=== PATIENT | female | born 1950 | race Caucasian/White ===

== ENCOUNTER 2018-03-20 15:05 | Emergency (ER) | payer OTHER | END 2018-03-20 16:12 | disposition home or self-care (01) | LOC: ER 16:12 | DX: S43.401A Unspecified sprain of right shoulder joint, initial encounter (principal); G89.29 Other chronic pain; X50.9XXA Other and unspecified overexertion or strenuous movements or postures, initial encounter; Y93.89 Activity, other specified; Y99.8 Other external cause status; Y92.89 Other specified places as the place of occurrence of the external cause | CPT/HCPCS: 73030; 99284 ==